=== PATIENT | male | born 1995 | race Two or more races ===

== ENCOUNTER 2016-07-24 22:40 | Emergency (ER) | payer OTHER ==
[2016-07-24 22:54] VITALS: RESP 18; TEMP 97.7; O2SAT 97
[2016-07-24] MEDS: LIDOCAINE HCL 2% GEL TOP ONE (23:22)
[2016-07-24] MEDS ORDERED: LIDOCAINE HCL 2% GEL TOP ONE (23:24)
[2016-07-25 00:23] VITALS: BP 110/57; PULSE 65
== END 2016-07-25 00:05 | disposition home or self-care (01) ==
LOC: ED 22:40
DX: S62.524A Nondisplaced fracture of distal phalanx of right thumb, initial encounter for closed fracture (principal); V29.9XXA Motorcycle rider (driver) (passenger) injured in unspecified traffic accident, initial encounter; S50.812A Abrasion of left forearm, initial encounter; S40.812A Abrasion of left upper arm, initial encounter
CPT/HCPCS: 29130; 73130; 99285; A6232; A6402